=== PATIENT | male | born 1965 | race Hispanic/Latino ===

== ENCOUNTER 2018-10-05 11:27 | Emergency (ER) | payer OTHER ==
[~2018-10-05] VITALS: Ht 165.1 cm; Wt 81.6 kg
[2018-10-05] MEDS ORDERED: SODIUM CHLORIDE 0.9% 1000ML 1,000 ML IV STA (11:41)
[2018-10-05] MEDS ORDERED: ONDANSETRON HCL INJ 2MG/ML 2ML 2 MG/ML VIAL IV ONE (12:00)
[2018-10-05] MEDS ORDERED: MORPHINE SULFATE INJ 4 MG/ML INJ 1ML IV ONE (12:05)
--- NOTE | 2018-10-05 12:15 | NUR ---
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 MADE AWARE OF AVAILBLE IBUPROFEN IF PAIN DOES INCREASE.
[2018-10-05 12:27] LABS: BASOPHILS # (AUTO) 0.1 (0.0-0.1); BASOPHILS % 0.3 % (0.0-1.0); EOSINOPHILS # (AUTO) 0.1 (0.0-0.4); EOSINOPHILS % 0.3 % (0.0-6.0); HEMATOCRIT 41.4 % (38.2-49.6); HEMOGLOBIN 14.7 g/dL (14.0-18.0); LYMPHOCYTES # (AUTO) 1.3 (1.0-3.2); LYMPHOCYTES % 8.3 % (18.0-39.1); MEAN CORPUSCULAR HEMOGLOBIN 30.8 pg (28-32); MEAN CORPUSCULAR HGB CONC 35.5 g/dL (31-35); MEAN CORPUSCULAR VOLUME 86.8 fL (81-99); MONOCYTES # (AUTO) 1.2 (0.2-0.8); MONOCYTES % 7.9 % (4.4-11.3); NEUTROPHILS % 82.6 % (38.7-80.0); PLATELET COUNT 183 x10e3/uL (140-360); RED BLOOD COUNT 4.77 x10e6/uL (4.3-5.7); RED CELL DISTRIBUTION WIDTH 13.1 % (11.7-14.4)
[2018-10-05 12:48] LABS: ALANINE AMINOTRANSFERASE 20 IU/L (0-55); ALBUMIN 3.7 g/dL (3.5-5.0); ALBUMIN/GLOBULIN RATIO 1.1 (0.8-2.0); ALKALINE PHOSPHATASE 51 IU/L (40-150); AMYLASE 54 U/L (25-125); ANION GAP 13.7 mmol/L (8-16); BLOOD UREA NITROGEN 12 mg/dL (7-26); BUN/CREATININE RATIO 14 (6-25); CARBON DIOXIDE 23 mmol/L (22-29); CHLORIDE 102 mmol/L (98-107); CREATININE, SERUM 0.85 mg/dL (0.72-1.25); EST GLOMERULAR FILTRATION RATE > 60 ML/MIN (60-); GLUCOSE 106 mg/dL (74-118); LIPASE 13 U/L (8-78); POTASSIUM 3.7 mmol/L (3.5-5.1); SODIUM 135 mmol/L (136-145)
[2018-10-05 13:01] LABS: BILIRUBIN,URINE NEGATIVE (NEGATIVE); CLARITY,URINE CLEAR (CLEAR); COLOR,URINE YELLOW (YELLOW); KETONES,URINE NEGATIVE (NEGATIVE); LEUKOCYTE ESTERASE ,URINE NEGATIVE (NEGATIVE); NITRITE,URINE NEGATIVE (NEGATIVE); PROTEIN,URINE DIPSTICK NEGATIVE (NEGATIVE); URINE UROBILINOGEN 0.2 mg/dL (0.2 - 1)
[2018-10-05] MEDS ORDERED: SODIUM CHLORIDE 0.9% 50ML 50 ML ONE (14:10)
[2018-10-05] MEDS ORDERED: IOPAMIDOL 370 MG/ML 200 ML INFUS..BTL INJ ONE (14:10)
--- NOTE | 2018-10-05 14:46 | Diagnostic Imaging Report ---
EXAMINATION: CT of the abdomen and pelvis with contrast. TECHNIQUE: Spiral CT images of the abdomen and pelvis were performed from the lung bases to the lesser trochanters after the intravenous administration of 100 cc Isovue-300 and the oral administration of water. Coronal and sagittal reformatted images were obtained. COMPARISON: None. CLINICAL HISTORY:Left lower quadrant abdominal pain, fever DISCUSSION: ABDOMEN/PELVIS: LOWER THORAX:Unremarkable. HEPATOBILIARY: No focal hepatic lesions. No intra-or extrahepatic biliary ductal dilation. The gallbladder is normal. SPLEEN: No splenomegaly. PANCREAS: No focal masses or ductal dilatation. ADRENALS: No adrenal nodules. KIDNEYS/URETERS: No hydronephrosis, stones, or solid mass lesions. PELVIC ORGANS/BLADDER: The urinary bladder is unremarkable. Multiple pelvic phleboliths. Prostate appears normal. PERITONEUM/RETROPERITONEUM: No free air or fluid. LYMPH NODES: No pelvic sidewall or retroperitoneal lymphadenopathy. Mildly prominent reactive left lower quadrant mesenteric lymph nodes. VESSELS: The abdominal aorta, major branch vessels, and iliac arterial systems are well-visualized and patent. Portal vein, splenic vein, and central superior mesenteric vein are patent. GI TRACT: Multiple large bowel diverticula. Short segment (approximately 8 cm length) focus of concentric wall thickening, enhancement, and adjacent inflammatory stranding involving the proximal sigmoid colon. No lissett extraluminal gas or drainable fluid collection. The remainder of the large bowel shows no distention or wall thickening. The appendix is normal. The stomach is collapsed with prominent rugal folds. There is no small bowel dilatation to suggest obstruction. BONES AND SOFT TISSUE: No focal soft tissue abnormalities. No osseous destructive lesions. Bone island right acetabular roof. IMPRESSION: Acute short segment sigmoid diverticulitis without lissett perforation or drainable fluid collection. Signed by: Dr. Meño Tan M.D. on 10/05/2018 2:43 PM
[2018-10-05] MEDS: ONDANSETRON HCL INJ 2MG/ML 2ML 2 MG/ML VIAL IV NR ×2 (16:00→16:04)
[2018-10-05] MEDS: MORPHINE SULFATE INJ 4 MG/ML INJ 1ML IV NR ×2 (16:00→16:06)
[2018-10-05] MEDS ORDERED: METRONIDAZOLE 500 MG TAB PO NR (16:30)
[2018-10-05] MEDS ORDERED: CIPROFLOXACIN 500 MG TAB PO SCH (16:30)
[2018-10-05 16:47] VITALS: BP 127/73
== END 2018-10-05 17:05 | disposition home or self-care (01) ==
LOC: ER 11:27
DX: R10.32 Left lower quadrant pain (principal); K57.92 Diverticulitis of intestine, part unspecified, without perforation or abscess without bleeding
CPT/HCPCS: 36415; 74177; 80053; 81001; 82150; 83690; 85025; 99284; J2270; J2405; J7030; Q9967